=== PATIENT | male | born 1940 | race Two or more races ===

== ENCOUNTER → 2017-11-16 | Outpatient (CLI) | payer OTHER ==
[~2017-11-16] MED LIST: ADVAIR 2501 DISK W/1; ARICEPT10 MG PO; AZULFIDINE500 M1; FOLIC ACID0.4 MG; NEURONTIN300 MG; PROTONIX40 MG; VITAMIN D50000 UNIT; ZOCOR20 MG; [UNRECOGNIZED DRUG - OTHER]
== END | disposition home or self-care (01) ==
LOC: NUCLEAR 14:00
DX: M81.0 Age-related osteoporosis without current pathological fracture (principal)

== ENCOUNTER 2018-03-17 06:21 | Day surgery (SDC) | payer OTHER | END 2018-03-17 10:00 | disposition home or self-care (01) | LOC: AMB-ENDOS 06:21 | DX: K57.30 Diverticulosis of large intestine without perforation or abscess without bleeding (principal); D12.0 Benign neoplasm of cecum; K29.50 Unspecified chronic gastritis without bleeding; B96.81 Helicobacter pylori [H. pylori] as the cause of diseases classified elsewhere ==

== ENCOUNTER 2019-03-08 12:26 | Outpatient (CLI) | payer OTHER | END 2019-03-08 14:19 | disposition home or self-care (01) | LOC: SONOGRAMA 12:26 | DX: N40.1 Benign prostatic hyperplasia with lower urinary tract symptoms (principal) ==

== ENCOUNTER → 2021-08-08 08:00 | Outpatient (CLI) | payer OTHER ==
[~2021-08-08 08:00] MED LIST changes: +LEVOXYL88 MCG; +METFORMIN HCL500 M3; +METHOTREXATE; +PLAVIX75 MG PO; +SERTRA PO; +SIMVAST PO; +TAMSULOSIN HCL0.4 MG; +ZEGERID 40 MG1 EACH; +[UNRECOGNIZED DRUG - OTHER] PO
== END | disposition home or self-care (01) ==
LOC: ADM 07:15 → LAB 08:00 → CIR.AMB 08-12 07:15 → EDSTATUS 08-12 07:15 → CIR.AMB 08-12 11:00
PROVIDERS: ATTEND Surgery
DX: N40.1 Benign prostatic hyperplasia with lower urinary tract symptoms (principal); B96.29 Other Escherichia coli [E. coli] as the cause of diseases classified elsewhere; I10 Essential (primary) hypertension

== ENCOUNTER 2021-09-05 19:19 | Emergency (ER) | payer OTHER ==
[~2021-09-05] VITALS: Ht 157.5 cm; Wt 81.6 kg
[~2021-09-05 19:19] MED LIST changes: -PLAVIX75 MG PO; -SERTRA PO; -SIMVAST PO; -[UNRECOGNIZED DRUG - OTHER] PO
[2021-09-11] MEDS ORDERED: ARICEPT10 MG PO (13:37)
[2021-09-11] MEDS ORDERED: PLAVIX75 MG PO (13:37)
[2021-09-11] MEDS ORDERED: SERTRA PO (13:38)
[2021-09-11] MEDS ORDERED: SIMVAST PO (13:38)
[2021-09-11] MEDS ORDERED: [UNRECOGNIZED DRUG - OTHER] PO (13:39)
== END 2021-09-06 10:11 | disposition home or self-care (01) ==
LOC: ER 19:19
DX: R06.02 Shortness of breath (principal); R07.89 Other chest pain; R50.9 Fever, unspecified; Z03.818 Encounter for observation for suspected exposure to other biological agents ruled out

== ENCOUNTER 2021-09-22 06:34 | Inpatient (IN) | payer OTHER ==
[~2021-09-22 06:34] MED LIST changes: +PLAVIX75 MG PO; +SERTRA PO; +SIMVAST PO; +[UNRECOGNIZED DRUG - OTHER] PO
[2021-09-23] MEDS ORDERED: TAMSULOSIN HCL0.4 MG PO (14:05)
[2021-09-23] MEDS ORDERED: SURFAK240 M1 PO (14:07)
== END 2021-09-23 19:38 | disposition home or self-care (01) | DRG 714 ==
LOC: CIR.AMB 06:34 → O/R 11:18 → SURH 11:36
PROVIDERS: ADMIT Surgery; ATTEND Surgery
PROC: 0T8C0ZZ Division of Bladder Neck, Open Approach (ICD-10-PCS; 2021-09-22)
PROC: 0VT08ZZ Resection of Prostate, Via Natural or Artificial Opening Endoscopic (ICD-10-PCS; principal; 2021-09-22 07:00)
DX: N40.1 Benign prostatic hyperplasia with lower urinary tract symptoms (principal); I12.9 Hypertensive chronic kidney disease with stage 1 through stage 4 chronic kidney disease, or unspecified chronic kidney disease; E11.22 Type 2 diabetes mellitus with diabetic chronic kidney disease; N18.9 Chronic kidney disease, unspecified; G47.39 Other sleep apnea; J44.9 Chronic obstructive pulmonary disease, unspecified; Z79.4 Long term (current) use of insulin

== ENCOUNTER 2023-06-07 13:12 | Outpatient (CLI) | payer OTHER ==
[~2023-06-07 13:12] MED LIST changes: +ARTHRITIS PAIN150 GM TOP; +SURFAK240 M1 PO; +TAMSULOSIN HCL0.4 MG PO; +ZANAFLEX2 MG PO
== END 2023-06-07 13:16 | disposition home or self-care (01) ==
LOC: RAD 13:12
PROVIDERS: ATTEND Physical Medicine & Rehabilitation
DX: M17.12 Unilateral primary osteoarthritis, left knee (principal)

== ENCOUNTER 2023-09-20 15:36 | Emergency (ER) | payer OTHER ==
[~2023-09-20] VITALS: Ht 157.5 cm; Wt 81.6 kg
[2023-09-20] MEDS ORDERED: METHOTREXATE2.5 MG (15:43)
[2023-09-20] MEDS ORDERED: ROSUVASTATIN CA10 MG (15:43)
[2023-09-20] MEDS ORDERED: SERTRALINE HCL100 MG (15:43)
[2023-09-20 17:23] LABS: HEMATOCRIT 33.9 % (39.0-48.0); HEMOGLOBIN 11.7 g/dL (13-16.00); MEAN CELL VOLUME 95.7 fL (80.0-100.00); MEAN CORPUSCULAR HEMOGLOBIN 32.9 pg (27.00-32.0); MEAN CORPUSCULAR HGB CONC 34.3 g/dl (32.0-36.0); RED BLOOD COUNT 3.54 M/uL (4.00-6.00)
[2023-09-20 17:36] LABS: PLATELET COUNT 117 K/uL (150-450)
[2023-09-20 17:48] LABS: INR 1.18; PARTIAL THROMBOPLASTIN TIME 28.9 SECONDS (22.0-34.0); PROTHROMBIN TIME 12.2 SECONDS (9.0-11.5)
[2023-09-20 18:25] LABS: ALBUMIN 2.7 gm/dL (3.4-5.0); BILIRUBIN TOTAL 1.09 mg/dL (0.3-1.2); CALCIUM 9.2 mg/dL (8.5-10.1); CREATININE SERUM 1.39 mg/dL (0.70-1.30); GFR 48.68; GLOBULINA 4.8 G/DL (2.4-3.5); POTASSIUM 4.24 mEq/L (3.5-5.1); TOTAL PROTEIN 7.5 gm/dL (6.4-8.2)
== END 2023-09-20 20:51 | disposition home or self-care (01) ==
LOC: ER 15:36
PROVIDERS: General Practice
DX: J11.1 Influenza due to unidentified influenza virus with other respiratory manifestations (principal); R50.9 Fever, unspecified; Z20.822 Contact with and (suspected) exposure to COVID-19; E11.9 Type 2 diabetes mellitus without complications; Z79.84 Long term (current) use of oral hypoglycemic drugs; M06.8A Other specified rheumatoid arthritis, other specified site; E03.9 Hypothyroidism, unspecified; Z86.73 Personal history of transient ischemic attack (TIA), and cerebral infarction without residual deficits; K57.32 Diverticulitis of large intestine without perforation or abscess without bleeding; K74.69 Other cirrhosis of liver; D73.2 Chronic congestive splenomegaly; N20.0 Calculus of kidney; I86.8 Varicose veins of other specified sites

== ENCOUNTER 2023-09-22 12:52 | Outpatient (CLI) | payer OTHER ==
[~2023-09-22 12:52] MED LIST changes: +METHOTREXATE2.5 MG; +ROSUVASTATIN CA10 MG; +SERTRALINE HCL100 MG
== END 2023-09-22 13:05 | disposition home or self-care (01) ==
LOC: MRI 12:52
PROVIDERS: ATTEND Physical Medicine & Rehabilitation
DX: M17.12 Unilateral primary osteoarthritis, left knee (principal); M25.562 Pain in left knee
CPT/HCPCS: 73721

== ENCOUNTER 2023-11-03 11:36 | Outpatient (CLI) | payer OTHER | END 2023-11-03 11:41 | disposition home or self-care (01) | LOC: RAD 11:36 | PROVIDERS: ATTEND Physical Medicine & Rehabilitation | DX: M54.51 Vertebrogenic low back pain (principal) ==

== ENCOUNTER 2023-11-17 19:36 | Inpatient (IN) | payer OTHER ==
[~2023-11-17] VITALS: Ht 157.5 cm; Wt 73.5 kg
[2023-11-17] MEDS ORDERED: 0.9 % SODIUM CHLORIDE 1,000 ML IV SCH ×2 (20:45→23:30)
[2023-11-17] MEDS ORDERED: CEFTRIAXONE SODIUM 2,000 MG VIAL IV ONE (20:45)
[2023-11-17 21:46] LABS: HEMATOCRIT 28.6 % (39.0-48.0); HEMOGLOBIN 9.7 g/dL (13-16.00); MEAN CELL VOLUME 93.6 fL (80.0-100.00); MEAN CORPUSCULAR HEMOGLOBIN 31.8 pg (27.00-32.0); PLATELET COUNT 193 K/uL (150-450); RED BLOOD COUNT 3.06 M/uL (4.00-6.00); RED CELL DISTRIBUTION WIDTH 16.3 % (11.5-14.5)
[2023-11-17 22:11] LABS: BILIRUBIN TOTAL 1.53 mg/dL (0.3-1.2); CALCIUM 8.3 mg/dL (8.5-10.1); CREATININE SERUM 1.45 mg/dL (0.70-1.30); GFR 46.36; GLOBULINA 4.5 G/DL (2.4-3.5); POTASSIUM 3.33 mEq/L (3.5-5.1); TOTAL PROTEIN 6.5 gm/dL (6.4-8.2)
[2023-11-17 22:49] LABS: URINE APPEARANCE CLEAR; URINE BILIRRUBIN Negative (NEGATIVE); URINE BLOOD Small; URINE COLOR Yellow; URINE GLUCOSE Negative (NEGATIVE); URINE LEUKOCYTE Small; URINE NITRATE Negative; URINE PROTEIN Trace (NEGATIVE)
[2023-11-17 22:50] LABS: URINE RBC 19-25 /HPF
[2023-11-17 22:51] LABS: URINE BACTERIA MODERATE; URINE MUCUS MODERATE; URINE YEAST NEGATIVE /hpf
[2023-11-17] MEDS ORDERED: DONEPEZIL HCL 10 MG TABLET PO SCH (23:29)
[2023-11-17] MEDS ORDERED: ACETAMINOPHEN 500 MG GEL..CAP PO PRN (23:30)
[2023-11-17] MEDS ORDERED: ONDANSETRON HCL 4 MG in 0.9 % SODIUM CHLORIDE 50 ML IV PRN (23:30)
[2023-11-18 01:58] LABS: INR 1.36; PARTIAL THROMBOPLASTIN TIME 34.6 SECONDS (22.0-34.0)
[2023-11-18] MEDS ORDERED: LEVOTHYROXINE SODIUM 88 MCG TABLET PO SCH (06:00)
[2023-11-18] MEDS ORDERED: CEFTRIAXONE SODIUM 2,000 MG in 0.9 % SODIUM CHLORIDE 100 ML IV SCH (09:00)
[2023-11-18] MEDS ORDERED: CLOPIDOGREL BISULFATE 75 MG TABLET PO SCH (09:00)
[2023-11-18] MEDS ORDERED: FAMOTIDINE/PF 20 MG in 0.9 % SODIUM CHLORIDE 8 ML IV PUSH SCH (09:00)
[2023-11-18 16:59] LABS: BILIRUBIN TOTAL 0.95 mg/dL (0.3-1.2); CALCIUM 7.9 mg/dL (8.5-10.1); CREATININE SERUM 1.25 mg/dL (0.70-1.30); GFR 55.03; GLOBULINA 3.9 G/DL (2.4-3.5); MAGNESIUM 1.9 mg/dL (1.8-2.4); PHOSPHOROUS 2.3 mg/dL (2.5-4.9); POTASSIUM 3.51 mEq/L (3.5-5.1); TOTAL PROTEIN 5.9 gm/dL (6.4-8.2); TSH 0.52 uIU/mL (0.358-3.74)
[2023-11-18] MEDS ORDERED: SIMVASTATIN 20 MG TABLET PO SCH (17:00)
[2023-11-19 07:05] LABS: BILIRUBIN TOTAL 0.83 mg/dL (0.3-1.2); CREATININE SERUM 1.14 mg/dL (0.70-1.30); GFR 61.2; POTASSIUM 3.76 mEq/L (3.5-5.1)
[2023-11-20 08:01] LABS: CREATININE SERUM 1.11 mg/dL (0.70-1.30); GFR 63.11; POTASSIUM 3.77 mEq/L (3.5-5.1)
[2023-11-20] MEDS ORDERED: SODIUM CHLORIDE 0.45 % 1,000 ML IV SCH (11:15)
[2023-11-20] MEDS ORDERED: DEXTROSE 5 %-0.45 % SOD CHLORD 1,000 ML IV SCH (15:00)
[2023-11-21 09:14] LABS: ALBUMIN 2.2 gm/dL (3.4-5.0); CALCIUM 8.3 mg/dL (8.5-10.1); CREATININE SERUM 1.11 mg/dL (0.70-1.30); GFR 63.11; POTASSIUM 4.51 mEq/L (3.5-5.1)
[2023-11-22 07:09] LABS: CALCIUM 8.2 mg/dL (8.5-10.1); CREATININE SERUM 1.08 mg/dL (0.70-1.30); GFR 65.14; POTASSIUM 3.76 mEq/L (3.5-5.1)
[2023-11-23] MEDS ORDERED: FAMOTIDINE/PF 20 MG/2 ML VIAL ONE (23:59)
[2023-11-24 06:19] LABS: HEMATOCRIT 27.5 % (39.0-48.0); HEMOGLOBIN 9.6 g/dL (13-16.00); MEAN CELL VOLUME 94.3 fL (80.0-100.00); MEAN CORPUSCULAR HEMOGLOBIN 32.9 pg (27.00-32.0); MEAN CORPUSCULAR HGB CONC 34.9 g/dl (32.0-36.0); PLATELET COUNT 195 K/uL (150-450); RED BLOOD COUNT 2.91 M/uL (4.00-6.00); RED CELL DISTRIBUTION WIDTH 16.8 % (11.5-14.5)
[2023-11-24 07:04] LABS: ALBUMIN 2.1 gm/dL (3.4-5.0); BILIRUBIN TOTAL 0.74 mg/dL (0.3-1.2); CALCIUM 8.2 mg/dL (8.5-10.1); CREATININE SERUM 0.91 mg/dL (0.70-1.30); GFR 79.37; GLOBULINA 3.8 G/DL (2.4-3.5); POTASSIUM 3.63 mEq/L (3.5-5.1); TOTAL PROTEIN 5.9 gm/dL (6.4-8.2)
== END 2023-11-24 13:15 | disposition home or self-care (01) | DRG 872 ==
LOC: ER 19:36 → MEDJ 23:31
PROVIDERS: General Practice; Internal Medicine; Internal Medicine Nephrology; Student in an Organized Health Care Education/Training Program; ADMIT Internal Medicine; ATTEND Internal Medicine
PROC: BW28ZZZ Computerized Tomography (CT Scan) of Head (ICD-10-PCS; principal; 2023-11-17)
PROC: B345ZZZ Ultrasonography of Bilateral Common Carotid Arteries (ICD-10-PCS; 2023-11-17)
PROC: B24BZZZ Ultrasonography of Heart with Aorta (ICD-10-PCS; 2023-11-17)
PROC: BW40ZZZ Ultrasonography of Abdomen (ICD-10-PCS; 2023-11-22)
DX: A41.9 Sepsis, unspecified organism (principal); N39.0 Urinary tract infection, site not specified; N17.9 Acute kidney failure, unspecified; E87.0 Hyperosmolality and hypernatremia; E86.0 Dehydration; E11.9 Type 2 diabetes mellitus without complications; Z79.4 Long term (current) use of insulin; E78.5 Hyperlipidemia, unspecified; N40.1 Benign prostatic hyperplasia with lower urinary tract symptoms

== ENCOUNTER 2024-05-08 10:39 | Outpatient (CLI) | payer OTHER ==
[~2024-05-08 10:39] MED LIST changes: +ZOLOFT25 MG
== END 2024-05-09 16:16 | disposition home or self-care (01) ==
LOC: MRI 10:39
PROVIDERS: ATTEND Internal Medicine Cardiovascular Disease
DX: M46.47 Discitis, unspecified, lumbosacral region (principal)
CPT/HCPCS: 72148

== ENCOUNTER 2024-08-29 14:31 | Inpatient (IN) | payer OTHER ==
[~2024-08-29] VITALS: Ht 167.6 cm; Wt 93.0 kg
[2024-08-29] MEDS ORDERED: LEVALBUTEROL HCL 1.25 MG/3 ML SOLUTION IH ONE (14:47)
[2024-08-29] MEDS ORDERED: BUDESONIDE 0.5 MG/2 ML AMPUL.NEB IH STA (15:20)
[2024-08-29] MEDS ORDERED: METHYLPREDNISOLONE SOD SUCC 125 MG VIAL IV STA (15:21)
[2024-08-29] MEDS ORDERED: MAGNESIUM SULFATE IN WATER 4 GM/100 ML PIGGYBACK IV STA (15:22)
[2024-08-29] MEDS ORDERED: HYDROCODONE/CHLORPHEN P-STIREX 5 ML ML PO STA (15:23)
[2024-08-29] MEDS ORDERED: 0.9 % SODIUM CHLORIDE 1,000 ML IV STA (15:25)
[2024-08-29] MEDS ORDERED: LEVALBUTEROL HCL 1.25 MG/3 ML SOLUTION IH SCH ×2 (15:30→17:22)
[2024-08-29 15:47] LABS: HEMATOCRIT 33.3 % (39.0-48.0); HEMOGLOBIN 11.1 g/dL (13-16.00); MEAN CELL VOLUME 95.9 fL (80.0-100.00); MEAN CORPUSCULAR HEMOGLOBIN 31.8 pg (27.00-32.0); MEAN CORPUSCULAR HGB CONC 33.2 g/dl (32.0-36.0); PLATELET COUNT 131 K/uL (150-450); RED BLOOD COUNT 3.47 M/uL (4.00-6.00); RED CELL DISTRIBUTION WIDTH 14.7 % (11.5-14.5)
[2024-08-29] MEDS ORDERED: METHYLPREDNISOLONE SOD SUCC 125 MG VIAL ONE (15:54)
[2024-08-29 15:58] LABS: ALBUMIN 2.5 gm/dL (3.4-5.0); BILIRUBIN TOTAL 1.6 mg/dL (0.3-1.2); CALCIUM 8.6 mg/dL (8.5-10.1); CREATININE SERUM 1.79 mg/dL (0.70-1.30); GFR 36.27; GLOBULINA 4.6 G/DL (2.4-3.5); POTASSIUM 4.31 mEq/L (3.5-5.1); TOTAL PROTEIN 7.1 gm/dL (6.4-8.2)
[2024-08-29 16:05] LABS: ABG PH 7.349 (7.35-7.45); ABG PO2 139.1 mmHg (80-100); BASE EXCESS -2.6 mmol/l; SaO2 98.9 %; Tco2 24.3 mmol/l; allen test SATISFACTORY; o2 35 %; puncture site RADIAL LEFT
[2024-08-29 16:06] LABS: ABG pCO2 42.6 mmHg (35-45)
[2024-08-29 17:00] LABS: INR 1.24; PARTIAL THROMBOPLASTIN TIME 25.2 SECONDS (22.0-34.0); PROTHROMBIN TIME 13.3 SECONDS (9.0-11.5)
[2024-08-29] MEDS ORDERED: CEFTRIAXONE SODIUM 2,000 MG in 0.9 % SODIUM CHLORIDE 100 ML IV SCH (17:24)
[2024-08-29] MEDS ORDERED: AZITHROMYCIN 500 MG in 0.9 % SODIUM CHLORIDE 250 ML IV SCH (17:24)
[2024-08-29] MEDS ORDERED: INSULIN LISPRO 1,000 UNIT/10 ML UNITS SUBCUTANEO PRN (17:30)
[2024-08-29] MEDS ORDERED: DEXTROSE 50 % IN WATER 0.5 G/ML DISP.SYRIN IV PRN (17:30)
[2024-08-29] MEDS ORDERED: ACETAMINOPHEN 500 MG GEL..CAP PO PRN (17:30)
[2024-08-29] MEDS ORDERED: 0.9 % SODIUM CHLORIDE 1,000 ML IV SCH (17:30)
[2024-08-29] MEDS ORDERED: ONDANSETRON HCL 4 MG in 0.9 % SODIUM CHLORIDE 50 ML IV PRN (18:00)
[2024-08-29] MEDS ORDERED: IPRATROPIUM BROMIDE 0.5 MG/2.5 ML AMPUL.NEB IH SCH (18:00)
[2024-08-29] MEDS ORDERED: CEFTRIAXONE SODIUM 2,000 MG VIAL ONE (18:25)
[2024-08-29] MEDS ORDERED: AZITHROMYCIN 500 MG VIAL IV ONE (18:25)
[2024-08-29 19:48] LABS: PH,URINE 5.5 (5.0-8.0); URINE APPEARANCE Cloudy; URINE BILIRRUBIN Small (NEGATIVE); URINE BLOOD Large; URINE COLOR Dark Yellow; URINE GLUCOSE Negative (NEGATIVE); URINE KETONE Trace (NEGATIVE); URINE LEUKOCYTE Moderate; URINE NITRATE Negative; URINE PROTEIN 30 (NEGATIVE)
[2024-08-29 19:52] LABS: URINE CAST 4.86 uL (0.0-1.40); URINE EPITHELIAL CELLS 35.1 uL (0.0-38.8); URINE RBC 186.3 uL (0.0-20.8)
[2024-08-29 20:03] LABS: URINE BACTERIA > 9821.5 uL (0.0-1933); URINE WBC 331.1 uL (0.0-23.2)
[2024-08-29 21:26] VITALS: BP 126/63; O2SAT 100
[2024-08-29 23:06] VITALS: BP 102/58; O2SAT 99
[2024-08-30] MEDS ORDERED: METHYLPREDNISOLONE SOD SUCC 40 MG VIAL IV SCH (01:00)
[2024-08-30 04:00] VITALS: BP 119/59; O2SAT 99
[2024-08-30] MEDS ORDERED: LEVOTHYROXINE SODIUM 88 MCG TABLET PO SCH (06:00)
[2024-08-30 07:00] VITALS: BP 124/66; O2SAT 98
[2024-08-30] MEDS ORDERED: AZITHROMYCIN 500 MG VIAL IV SCH (09:00)
[2024-08-30] MEDS ORDERED: PANTOPRAZOLE SODIUM 40 MG/VIAL VIAL IV SCH (09:00)
[2024-08-30] MEDS ORDERED: ENOXAPARIN SODIUM 40 MG/0.4 ML SYRINGE SUBCUTANEO SCH (09:00)
[2024-08-30 09:42] LABS: ABG PH 7.371 (7.35-7.45); ABG PO2 90.6 mmHg (80-100); ABG pCO2 38.8 mmHg (35-45); BASE EXCESS -2.9 mmol/l; SaO2 96.6 %; Tco2 23.2 mmol/l
[2024-08-30 09:43] LABS: allen test SATISFACTORY; o2 30 %; puncture site RADIAL LEFT
[2024-08-30] MEDS ORDERED: AZITHROMYCIN 500 MG VIAL IV ONE (11:28)
[2024-08-30 11:59] VITALS: BP 125/63; O2SAT 99
[2024-08-30 12:51] LABS: HEMATOCRIT 33.4 % (39.0-48.0); HEMOGLOBIN 11.2 g/dL (13-16.00); MEAN CORPUSCULAR HEMOGLOBIN 32.3 pg (27.00-32.0); MEAN CORPUSCULAR HGB CONC 33.7 g/dl (32.0-36.0); RED BLOOD COUNT 3.48 M/uL (4.00-6.00); RED CELL DISTRIBUTION WIDTH 14.5 % (11.5-14.5)
[2024-08-30 12:56] LABS: PLATELET COUNT 93 K/uL (150-450)
[2024-08-30 13:50] LABS: CALCIUM 8.1 mg/dL (8.5-10.1); CREATININE SERUM 1.52 mg/dL (0.70-1.30); GFR 43.8; POTASSIUM 4.56 mEq/L (3.5-5.1)
[2024-08-30 15:10] VITALS: BP 124/66; O2SAT 99
[2024-08-30 20:00] VITALS: BP 101/55; O2SAT 100
[2024-08-30 23:20] VITALS: BP 122/60; O2SAT 100
[2024-08-31 04:00] VITALS: BP 105/52
[2024-08-31 06:28] LABS: HEMATOCRIT 30.4 % (39.0-48.0); HEMOGLOBIN 10.4 g/dL (13-16.00); MEAN CELL VOLUME 94.6 fL (80.0-100.00); MEAN CORPUSCULAR HEMOGLOBIN 32.3 pg (27.00-32.0); MEAN CORPUSCULAR HGB CONC 34.2 g/dl (32.0-36.0); RED BLOOD COUNT 3.21 M/uL (4.00-6.00); RED CELL DISTRIBUTION WIDTH 14.9 % (11.5-14.5)
[2024-08-31 06:30] LABS: PLATELET COUNT 104 K/uL (150-450)
[2024-08-31 07:00] VITALS: BP 66/56
[2024-08-31 07:07] LABS: CALCIUM 7.8 mg/dL (8.5-10.1); CREATININE SERUM 1.34 mg/dL (0.70-1.30); GFR 50.66; POTASSIUM 4.1 mEq/L (3.5-5.1)
[2024-08-31] MEDS ORDERED: AZITHROMYCIN 500 MG VIAL IV ONE (07:47)
[2024-08-31] MEDS ORDERED: SERTRALINE HCL 25 MG TABLET PO SCH (09:00)
[2024-08-31] MEDS ORDERED: ATORVASTATIN CALCIUM 20 MG TABLET PO SCH (09:00)
[2024-08-31] MEDS ORDERED: CLOPIDOGREL BISULFATE 75 MG TABLET PO SCH (09:00)
[2024-08-31 12:05] VITALS: BP 112/63; O2SAT 96
[2024-08-31 14:16] LABS: PH,URINE 5.5 (5.0-8.0); URINE APPEARANCE Clear; URINE BILIRRUBIN Negative (NEGATIVE); URINE BLOOD Large; URINE COLOR Yellow; URINE GLUCOSE Negative (NEGATIVE); URINE KETONE Negative (NEGATIVE); URINE LEUKOCYTE Small; URINE NITRATE Negative; URINE PROTEIN 30 (NEGATIVE); URINE UROBILINOGEN 0.2 E.U./dl
[2024-08-31 14:19] LABS: URINE BACTERIA 40.3 uL (0.0-1933); URINE EPITHELIAL CELLS 4.7 uL (0.0-38.8); URINE RBC 1618.2 uL (0.0-20.8); URINE WBC 36.8 uL (0.0-23.2)
[2024-08-31 14:25] VITALS: BP 106/45
[2024-08-31] MEDS ORDERED: LACTOBACILLUS ACIDOPHILUS 1 CAP CAP PO SCH (17:00)
[2024-08-31] MEDS ORDERED: DONEPEZIL HCL 10 MG TABLET PO SCH (17:00)
[2024-08-31 17:25] VITALS: BP 110/61; O2SAT 95
[2024-09-01 00:51] VITALS: BP 129/67; O2SAT 99
[2024-09-01 06:15] LABS: HEMATOCRIT 30.5 % (39.0-48.0); HEMOGLOBIN 10.5 g/dL (13-16.00); MEAN CELL VOLUME 94.8 fL (80.0-100.00); MEAN CORPUSCULAR HEMOGLOBIN 32.7 pg (27.00-32.0); MEAN CORPUSCULAR HGB CONC 34.5 g/dl (32.0-36.0); RED BLOOD COUNT 3.21 M/uL (4.00-6.00); RED CELL DISTRIBUTION WIDTH 15.3 % (11.5-14.5)
[2024-09-01 06:27] LABS: PLATELET COUNT 111 K/uL (150-450)
[2024-09-01 06:46] LABS: CALCIUM 8.2 mg/dL (8.5-10.1); CREATININE SERUM 1.27 mg/dL (0.70-1.30); GFR 53.9; POTASSIUM 4.87 mEq/L (3.5-5.1)
[2024-09-01] MEDS ORDERED: AZITHROMYCIN 500 MG VIAL IV ONE (08:46)
[2024-09-01] MEDS ORDERED: PANTOPRAZOLE SODIUM 40 MG/VIAL VIAL IV SCH (09:00)
[2024-09-01 09:09] VITALS: BP 113/62; O2SAT 100
[2024-09-01 12:57] LABS: ABG PH 7.402 (7.35-7.45); ABG pCO2 36.2 mmHg (35-45)
[2024-09-01 12:58] LABS: ABG PO2 87.9 mmHg (80-100); BASE EXCESS -2.2 mmol/l; SaO2 96.6 %; Tco2 23.1 mmol/l; allen test SATISFACTORY; o2 21 %; puncture site RADIAL RIGHT
[2024-09-01 17:27] VITALS: BP 140/67; O2SAT 97
[2024-09-02] MEDS ORDERED: METHYLPREDNISOLONE SOD SUCC 40 MG VIAL IV SCH (01:00)
[2024-09-02 02:08] VITALS: BP 145/71; O2SAT 97
[2024-09-02] MEDS ORDERED: AZITHROMYCIN 500 MG VIAL IV ONE (08:29)
[2024-09-02] MEDS ORDERED: PANTOPRAZOLE SODIUM 40 MG TABLET.DR PO SCH (09:00)
[2024-09-02 10:33] VITALS: BP 135/69; O2SAT 96
== END 2024-09-02 10:32 | disposition home or self-care (01) | DRG 864 ==
LOC: ER 14:31 → ICU-2 19:07 → ICU 19:07 → MEDJ 08-31 14:25
PROVIDERS: General Practice; Internal Medicine; Internal Medicine Infectious Disease; Internal Medicine Pulmonary Disease; ADMIT Student in an Organized Health Care Education/Training Program; ATTEND Student in an Organized Health Care Education/Training Program
PROC: BW24ZZZ Computerized Tomography (CT Scan) of Chest and Abdomen (ICD-10-PCS; principal; 2024-08-29)
DX: R65.10 Systemic inflammatory response syndrome (SIRS) of non-infectious origin without acute organ dysfunction (principal); J18.9 Pneumonia, unspecified organism; J96.90 Respiratory failure, unspecified, unspecified whether with hypoxia or hypercapnia; J44.1 Chronic obstructive pulmonary disease with (acute) exacerbation; L03.115 Cellulitis of right lower limb; N17.9 Acute kidney failure, unspecified; N39.0 Urinary tract infection, site not specified; F03.90 Unspecified dementia, unspecified severity, without behavioral disturbance, psychotic disturbance, mood disturbance, and anxiety; E11.9 Type 2 diabetes mellitus without complications; Z79.4 Long term (current) use of insulin; B96.0 Mycoplasma pneumoniae [M. pneumoniae] as the cause of diseases classified elsewhere; G47.33 Obstructive sleep apnea (adult) (pediatric)

== ENCOUNTER 2024-11-16 11:47 | Inpatient (IN) | payer OTHER ==
[~2024-11-16] VITALS: Ht 157.5 cm; Wt 81.6 kg
[2024-11-16] MEDS ORDERED: METHYLPREDNISOLONE SOD SUCC 40 MG VIAL IV ONE (12:00)
[2024-11-16] MEDS ORDERED: IPRATROPIUM BROMIDE 0.5 MG/2.5 ML AMPUL.NEB IH ONE ×3 (12:00→20:42)
[2024-11-16] MEDS ORDERED: LEVALBUTEROL HCL 0.63 MG/3 ML SOLUTION IH ONE (12:00)
[2024-11-16] MEDS ORDERED: 0.9 % SODIUM CHLORIDE 1,000 ML IV SCH ×2 (12:00→17:30)
[2024-11-16] MEDS ORDERED: LEVALBUTEROL HCL 1.25 MG/3 ML SOLUTION IH ONE ×2 (12:13→20:41)
[2024-11-16 12:17] LABS: ABG PH 7.416 (7.35-7.45); ABG PO2 60.1 mmHg (80-100); ABG pCO2 35.7 mmHg (35-45); BASE EXCESS -1.5 mmol/l; BICARBONATE 22.4 mmol/l (23-25); Tco2 23.5 mmol/l
[2024-11-16 12:29] LABS: HEMATOCRIT 29.2 % (39.0-48.0); HEMOGLOBIN 10.2 g/dL (13-16.00); MEAN CELL VOLUME 95.3 fL (80.0-100.00); MEAN CORPUSCULAR HEMOGLOBIN 33.2 pg (27.00-32.0); MEAN CORPUSCULAR HGB CONC 34.9 g/dl (32.0-36.0); RED BLOOD COUNT 3.06 M/uL (4.00-6.00); RED CELL DISTRIBUTION WIDTH 16.1 % (11.5-14.5)
[2024-11-16 12:32] LABS: PLATELET COUNT 113 K/uL (150-450)
[2024-11-16 12:37] LABS: allen test SATISFACTORY; puncture site RADIAL RIGHT
[2024-11-16 12:38] LABS: o2 21 %
[2024-11-16] MEDS ORDERED: METHYLPREDNISOLONE SOD SUCC 40 MG VIAL ONE (12:47)
[2024-11-16 13:01] LABS: URINE APPEARANCE Cloudy; URINE BILIRRUBIN Small (NEGATIVE); URINE BLOOD Small; URINE COLOR Dark Yellow; URINE GLUCOSE Negative (NEGATIVE); URINE KETONE Trace (NEGATIVE); URINE LEUKOCYTE Large; URINE NITRATE Negative; URINE PROTEIN Trace (NEGATIVE); URINE UROBILINOGEN 0.2 E.U./dl
[2024-11-16 13:05] LABS: URINE CAST 2.35 uL (0.0-1.40); URINE EPITHELIAL CELLS 7.4 uL (0.0-38.8); URINE WBC 560.5 uL (0.0-23.2)
[2024-11-16 13:18] LABS: ALBUMIN 2.6 gm/dL (3.4-5.0); BILIRUBIN TOTAL 2.27 mg/dL (0.3-1.2); CALCIUM 8.4 mg/dL (8.5-10.1); CREATININE SERUM 2.15 mg/dL (0.70-1.30); GFR 29.36; GLOBULINA 3.9 G/DL (2.4-3.5); TOTAL PROTEIN 6.5 gm/dL (6.4-8.2)
[2024-11-16 13:31] LABS: URINE BACTERIA > 9821.5 uL (0.0-1933)
[2024-11-16 13:46] LABS: URINE CRYSTALS FEW /HPF
[2024-11-16] MEDS ORDERED: CEFTRIAXONE SODIUM 1,000 MG VIAL ONE (13:55)
[2024-11-16] MEDS ORDERED: CEFTRIAXONE SODIUM 1,000 MG VIAL IV ONE (14:00)
[2024-11-16] MEDS ORDERED: LEVALBUTEROL HCL 1.25 MG/3 ML SOLUTION IH SCH (17:33)
[2024-11-16] MEDS ORDERED: AZITHROMYCIN 500 MG in DEXTROSE 5 % IN WATER 250 ML IV SCH (17:39)
[2024-11-16] MEDS ORDERED: CEFTRIAXONE SODIUM 2,000 MG in 0.9 % SODIUM CHLORIDE 100 ML IV SCH (17:39)
[2024-11-16] MEDS ORDERED: OSELTAMIVIR PHOSPHATE 75 MG CAPSULE PO SCH (17:42)
[2024-11-16] MEDS ORDERED: LACTULOSE 10 G/15 ML ML PO SCH (17:44)
[2024-11-16] MEDS ORDERED: ACETAMINOPHEN 500 MG GEL..CAP PO PRN (17:45)
[2024-11-16] MEDS ORDERED: ONDANSETRON HCL 4 MG in 0.9 % SODIUM CHLORIDE 50 ML IV PRN (17:45)
[2024-11-16] MEDS ORDERED: PANTOPRAZOLE SODIUM 40 MG/VIAL VIAL IV SCH (17:49)
[2024-11-16] MEDS ORDERED: 0.9 % SODIUM CHLORIDE 500 ML IV ONE (18:00)
[2024-11-16] MEDS ORDERED: IPRATROPIUM BROMIDE 0.5 MG/2.5 ML AMPUL.NEB IH SCH (18:00)
[2024-11-16 19:31] LABS: INR 1.26; PARTIAL THROMBOPLASTIN TIME 30.9 SECONDS (22.0-34.0); PROTHROMBIN TIME 13.5 SECONDS (9.0-11.5)
[2024-11-16] MEDS ORDERED: CEFTRIAXONE SODIUM 2,000 MG VIAL ONE (20:04)
[2024-11-16] MEDS ORDERED: AZITHROMYCIN 500 MG VIAL IV ONE (20:05)
[2024-11-16] MEDS ORDERED: OSELTAMIVIR PHOSPHATE 30MG CAP PO SCH (21:00)
[2024-11-16 23:43] VITALS: BP 101/49; O2SAT 99
[2024-11-17] VITALS (8 sets, daily range): BP systolic 83–117; BP diastolic 46–63; O2SAT 94–100
[2024-11-17] MEDS ORDERED: IPRATROPIUM BROMIDE 0.5 MG/2.5 ML AMPUL.NEB IH ONE (00:48)
[2024-11-17] MEDS ORDERED: LEVALBUTEROL HCL 0.63 MG/3 ML SOLUTION IH ONE (00:48)
[2024-11-17] MEDS ORDERED: LEVOTHYROXINE SODIUM 100 MCG TABLET PO SCH (06:00)
[2024-11-17] MEDS ORDERED: MEMANTINE HCL 10 MG TABLET PO SCH (09:00)
[2024-11-17] MEDS ORDERED: FOLIC ACID 1 MG TABLET PO SCH (09:00)
[2024-11-17] MEDS ORDERED: LACTULOSE 20 G/30 ML BLIST.PACK PO SCH (09:00)
[2024-11-17] MEDS ORDERED: CHLORHEXIDINE GLUCONATE 120 ML BOTTLE TOP ONE (11:14)
[2024-11-17] MEDS ORDERED: METHYLPREDNISOLONE SOD SUCC 40 MG VIAL IV SCH (13:00)
[2024-11-17] MEDS ORDERED: AZITHROMYCIN 500 MG VIAL IV STA (13:29)
[2024-11-17] MEDS ORDERED: AZITHROMYCIN 500 MG VIAL IV ONE (14:18)
[2024-11-17] MEDS ORDERED: DONEPEZIL HCL 10 MG TABLET PO SCH (17:00)
[2024-11-18] VITALS: BP 138/55; O2SAT 95
[2024-11-18 08:04] VITALS: BP 150/72; O2SAT 97
[2024-11-18] MEDS ORDERED: AZITHROMYCIN 500 MG VIAL IV ONE (08:31)
[2024-11-18] MEDS ORDERED: AZITHROMYCIN 500 MG VIAL IV SCH (09:00)
[2024-11-18 16:35] VITALS: BP 128/65; O2SAT 96
[2024-11-18] MEDS ORDERED: VANCOMYCIN HCL 1,000 MG VIAL IV SCH (19:20)
[2024-11-19 00:25] VITALS: BP 116/50; O2SAT 96
[2024-11-19 08:13] VITALS: BP 150/77; O2SAT 97
[2024-11-19 08:18] LABS: ALBUMIN 2.6 gm/dL (3.4-5.0); BILIRUBIN TOTAL 0.5 mg/dL (0.3-1.2); CALCIUM 8.4 mg/dL (8.5-10.1); CREATININE SERUM 1.42 mg/dL (0.70-1.30); GFR 47.38; GLOBULINA 4.1 G/DL (2.4-3.5); POTASSIUM 4.22 mEq/L (3.5-5.1); TOTAL PROTEIN 6.7 gm/dL (6.4-8.2)
[2024-11-19] MEDS ORDERED: AZITHROMYCIN 500 MG VIAL IV ONE (08:19)
[2024-11-19 08:28] LABS: HEMATOCRIT 29.6 % (39.0-48.0); HEMOGLOBIN 10.3 g/dL (13-16.00); MEAN CELL VOLUME 95.7 fL (80.0-100.00); MEAN CORPUSCULAR HEMOGLOBIN 33.3 pg (27.00-32.0); MEAN CORPUSCULAR HGB CONC 34.8 g/dl (32.0-36.0); PLATELET COUNT 149 K/uL (150-450); RED BLOOD COUNT 3.09 M/uL (4.00-6.00); RED CELL DISTRIBUTION WIDTH 16.6 % (11.5-14.5)
[2024-11-19] MEDS ORDERED: VANCOMYCIN HCL 1,000 MG VIAL ONE (14:34)
[2024-11-19 16:44] VITALS: BP 124/57; O2SAT 98
[2024-11-20 00:40] VITALS: BP 139/68; O2SAT 95
[2024-11-20 08:00] VITALS: BP 131/68
[2024-11-20] MEDS ORDERED: AZITHROMYCIN 500 MG VIAL IV ONE (08:18)
[2024-11-20] MEDS ORDERED: VANCOMYCIN HCL 1,000 MG VIAL ONE (14:18)
[2024-11-20 15:04] LABS: CALCIUM 8.7 mg/dL (8.5-10.1); CREATININE SERUM 1.3 mg/dL (0.70-1.30); GFR 52.47
[2024-11-20 15:58] LABS: POTASSIUM 3.59 mEq/L (3.5-5.1)
[2024-11-20 16:27] VITALS: BP 121/57; O2SAT 95
[2024-11-21 00:37] VITALS: BP 110/48; O2SAT 96
[2024-11-21] MEDS ORDERED: AZITHROMYCIN 500 MG VIAL IV ONE (06:44)
[2024-11-21 09:52] VITALS: BP 134/72; O2SAT 19
[2024-11-21 18:55] VITALS: BP 132/70; O2SAT 100
[2024-11-21] MEDS ORDERED: METHYLPREDNISOLONE SOD SUCC 40 MG VIAL IV SCH (21:00)
[2024-11-21 22:49] LABS: ABG pCO2 37.4 mmHg (35-45); BASE EXCESS -1.7 mmol/l; BICARBONATE 22.7 mmol/l (23-25); SaO2 95.2 %; Tco2 23.8 mmol/l; o2 21 %
[2024-11-21 22:50] LABS: ABG PO2 77.4 mmHg (80-100); allen test SATISFACTORY; puncture site RADIAL RIGHT
[2024-11-22 00:55] VITALS: BP 130/66; O2SAT 97
[2024-11-22] MEDS ORDERED: AZITHROMYCIN 500 MG VIAL IV ONE (06:30)
[2024-11-22 08:00] VITALS: BP 152/72; O2SAT 96
[2024-11-22 08:30] LABS: HEMATOCRIT 30.9 % (39.0-48.0); HEMOGLOBIN 10.6 g/dL (13-16.00); MEAN CELL VOLUME 95.6 fL (80.0-100.00); MEAN CORPUSCULAR HEMOGLOBIN 32.9 pg (27.00-32.0); MEAN CORPUSCULAR HGB CONC 34.4 g/dl (32.0-36.0); PLATELET COUNT 218 K/uL (150-450); RED BLOOD COUNT 3.23 M/uL (4.00-6.00); RED CELL DISTRIBUTION WIDTH 16.6 % (11.5-14.5)
[2024-11-22] MEDS ORDERED: PANTOPRAZOLE SODIUM 40 MG TABLET.DR PO SCH (09:00)
[2024-11-22] MEDS ORDERED: VANCOMYCIN HCL 1,000 MG VIAL IV SCH (09:02)
[2024-11-22] MEDS ORDERED: VANCOMYCIN HCL 1,000 MG VIAL ONE (09:49)
[2024-11-22 16:00] VITALS: BP 138/63; O2SAT 95
[2024-11-22 23:46] VITALS: BP 121/69; O2SAT 98
[2024-11-23] MEDS ORDERED: AZITHROMYCIN 500 MG VIAL IV ONE (07:00)
[2024-11-23] MEDS ORDERED: VANCOMYCIN HCL 1,000 MG VIAL ONE (07:01)
[2024-11-23 08:15] VITALS: BP 132/62; O2SAT 95
[2024-11-23] MEDS ORDERED: METHYLPREDNISOLONE SOD SUCC 40 MG VIAL IV SCH (09:00)
[2024-11-23 09:28] LABS: CALCIUM 8.4 mg/dL (8.5-10.1); CREATININE SERUM 1.28 mg/dL (0.70-1.30); GFR 53.41; POTASSIUM 4.06 mEq/L (3.5-5.1)
[2024-11-23] MEDS ORDERED: BUDESONIDE 0.5 MG/2 ML AMPUL.NEB IH SCH (15:45)
[2024-11-23 16:00] VITALS: BP 136/73; O2SAT 95
[2024-11-24 00:19] VITALS: BP 135/84; O2SAT 99
[2024-11-24] MEDS ORDERED: VANCOMYCIN HCL 1,000 MG VIAL ONE (06:26)
[2024-11-24 08:36] VITALS: BP 141/73; O2SAT 96
[2024-11-24 16:00] VITALS: BP 132/65; O2SAT 96
[2024-11-24] MEDS ORDERED: hydrALAZINE HCL 20 MG VIAL IV PRN (17:45)
[2024-11-24] MEDS ORDERED: NIFEDIPINE 30 MG TAB.SA.OSM PO STA (18:12)
[2024-11-25 00:30] VITALS: BP 110/56; O2SAT 96
[2024-11-25] MEDS ORDERED: VANCOMYCIN HCL 1,000 MG VIAL ONE (06:33)
[2024-11-25 08:00] VITALS: BP 119/69; O2SAT 96
[2024-11-25] MEDS ORDERED: NIFEDIPINE 30 MG TAB.SA.OSM PO SCH (09:00)
[2024-11-25 16:18] VITALS: BP 105/55; O2SAT 95
[2024-11-26 00:15] VITALS: BP 123/64; O2SAT 95
[2024-11-26 08:59] VITALS: BP 124/57; O2SAT 95
[2024-11-26 16:00] VITALS: BP 115/62; O2SAT 95
[2024-11-27 00:36] VITALS: BP 131/62; O2SAT 95
[2024-11-27 08:00] VITALS: BP 125/66; O2SAT 95
[2024-11-27 17:27] VITALS: BP 120/59; O2SAT 94
== END 2024-11-27 18:34 | disposition home or self-care (01) | DRG 194 ==
LOC: ER 11:47 → ICU-2 18:35 → ICU 18:35 → SURH 11-17 22:04
PROVIDERS: Emergency Medicine; General Practice; Internal Medicine; Internal Medicine Nephrology; ADMIT Student in an Organized Health Care Education/Training Program; ATTEND Student in an Organized Health Care Education/Training Program
PROC: BB24ZZZ Computerized Tomography (CT Scan) of Bilateral Lungs (ICD-10-PCS; 2024-11-16)
PROC: 3E0F7GC Introduction of Other Therapeutic Substance into Respiratory Tract, Via Natural or Artificial Opening (ICD-10-PCS; 2024-11-16)
PROC: 8E0ZXY6 Isolation (ICD-10-PCS; principal; 2024-11-17)
PROC: 02HV33Z Insertion of Infusion Device into Superior Vena Cava, Percutaneous Approach (ICD-10-PCS; 2024-11-25)
PROC: 3E04329 Introduction of Other Anti-infective into Central Vein, Percutaneous Approach (ICD-10-PCS; 2024-11-25)
DX: J10.08 Influenza due to other identified influenza virus with other specified pneumonia (principal); N17.9 Acute kidney failure, unspecified; N39.0 Urinary tract infection, site not specified; J44.1 Chronic obstructive pulmonary disease with (acute) exacerbation; K76.82 Hepatic encephalopathy; R22.32 Localized swelling, mass and lump, left upper limb; B95.7 Other staphylococcus as the cause of diseases classified elsewhere; K74.60 Unspecified cirrhosis of liver; E11.9 Type 2 diabetes mellitus without complications; G47.33 Obstructive sleep apnea (adult) (pediatric); G30.9 Alzheimer's disease, unspecified; M06.9 Rheumatoid arthritis, unspecified; Z87.891 Personal history of nicotine dependence; Z74.01 Bed confinement status; Z79.84 Long term (current) use of oral hypoglycemic drugs; B96.20 Unspecified Escherichia coli [E. coli] as the cause of diseases classified elsewhere

== ENCOUNTER 2024-12-02 14:31 | Inpatient (IN) | payer OTHER ==
[~2024-12-02] VITALS: Ht 162.6 cm; Wt 189.6 kg
--- NOTE | 2024-12-02 14:56 | NUR ---
PACIENTE ALERTA Y ORIENTADO X3 TRAIDO EN AMBULANCIA JUNTO A PARAMEDICOS. PACIENTE REFIERE VENIR POR HIPOTENSION, NO REFIERE NINGUN OTRO SINTOMA AL MOMENTO. SE TINY S/V Y SE UBICA.
[2024-12-02 17:15] LABS: HEMATOCRIT 28.9 % (39.0-48.0); HEMOGLOBIN 9.9 g/dL (13-16.00); MEAN CELL VOLUME 95.8 fL (80.0-100.00); MEAN CORPUSCULAR HEMOGLOBIN 32.7 pg (27.00-32.0); MEAN CORPUSCULAR HGB CONC 34.1 g/dl (32.0-36.0); RED BLOOD COUNT 3.02 M/uL (4.00-6.00); RED CELL DISTRIBUTION WIDTH 16.5 % (11.5-14.5)
--- NOTE | 2024-12-02 17:15 | NUR ---
SE EDUCA A FAMILIAR SOBRE [place] MEDICO, SE TINY MUESTRAS DE LABORATORIO UTILIZANDO MEDIDAS ASEPTICAS. PTE CON PICC LINE EN BRAZO RT.
[2024-12-02 17:16] LABS: PLATELET COUNT 104 K/uL (150-450)
[2024-12-02 17:29] LABS: INR 1.25; PARTIAL THROMBOPLASTIN TIME 31.5 SECONDS (22.0-34.0); PROTHROMBIN TIME 13.4 SECONDS (9.0-11.5)
[2024-12-02 17:35] LABS: ALBUMIN 2.4 gm/dL (3.4-5.0); BILIRUBIN TOTAL 1.26 mg/dL (0.3-1.2); BILIRUBIN,CONJUGATED 0.54 mg/dL (0.0-0.2); BILIRUBIN,UNCONJUGATED 0.72 mg/dL (0.0-0.6); CALCIUM 8.7 mg/dL (8.5-10.1); CREATININE SERUM 1.59 mg/dL (0.70-1.30); GFR 41.59; GLOBULINA 3.7 G/DL (2.4-3.5); POTASSIUM 3.83 mEq/L (3.5-5.1); TOTAL PROTEIN 6.1 gm/dL (6.4-8.2)
[2024-12-02 17:46] LABS: URINE APPEARANCE Clear; URINE BILIRRUBIN Negative (NEGATIVE); URINE BLOOD Negative; URINE COLOR Yellow; URINE GLUCOSE Negative (NEGATIVE); URINE KETONE Negative (NEGATIVE); URINE LEUKOCYTE Negative; URINE NITRATE Negative; URINE PROTEIN Negative (NEGATIVE); URINE UROBILINOGEN 0.2 E.U./dl
[2024-12-02 17:50] LABS: URINE BACTERIA 17.1 uL (0.0-1933); URINE WBC 6.3 uL (0.0-23.2)
[2024-12-02 18:15] LABS: URINE CAST 0.44 uL (0.0-1.40); URINE EPITHELIAL CELLS 1.2 uL (0.0-38.8); URINE RBC 1.6 uL (0.0-20.8)
[2024-12-02 18:18] LABS: URINE YEAST NEGATIVE /hpf
[2024-12-02] MEDS ORDERED: CEFTRIAXONE SODIUM 2,000 MG in 0.9 % SODIUM CHLORIDE 100 ML IV SCH (20:23)
[2024-12-02] MEDS ORDERED: OSELTAMIVIR PHOSPHATE 75 MG CAPSULE PO SCH (20:24)
[2024-12-02] MEDS ORDERED: PANTOPRAZOLE SODIUM 40 MG in 0.9 % SODIUM CHLORIDE 8 ML IV PUSH SCH (20:24)
[2024-12-02] MEDS ORDERED: AZITHROMYCIN 500 MG VIAL IV SCH (20:24)
[2024-12-02 20:25] LABS: ABG PH 7.428 (7.35-7.45); ABG PO2 108.2 mmHg (80-100); BICARBONATE 26.5 mmol/l (23-25); SaO2 98.3 %; Tco2 27.8 mmol/l
[2024-12-02] MEDS ORDERED: 0.9 % SODIUM CHLORIDE 1,000 ML IV SCH (20:30)
[2024-12-02] MEDS ORDERED: ACETAMINOPHEN 325 MG TABLET PO PRN (20:30)
[2024-12-02] MEDS ORDERED: GUAIFENESIN 200 MG/10 ML BLIST.PACK PO SCH (20:42)
[2024-12-02] MEDS ORDERED: DEXTROSE 50 % IN WATER 0.5 G/ML DISP.SYRIN IV PRN (20:45)
[2024-12-02] MEDS ORDERED: INSULIN LISPRO 1,000 UNIT/10 ML UNITS SUBCUTANEO PRN (20:45)
[2024-12-02] MEDS ORDERED: hydrALAZINE HCL 20 MG VIAL IV PRN (20:45)
[2024-12-02] MEDS ORDERED: METHYLPREDNISOLONE SOD SUCC 40 MG VIAL IV SCH (21:00)
[2024-12-02 21:58] LABS: allen test SATISFACTORY; o2 32 %; puncture site RADIAL RIGHT
[2024-12-02] MEDS ORDERED: METHYLPREDNISOLONE SOD SUCC 40 MG VIAL ONE (22:16)
[2024-12-02] MEDS ORDERED: ACETAMINOPHEN 500 MG GEL..CAP PO ONE (22:16)
[2024-12-02] MEDS ORDERED: OSELTAMIVIR PHOSPHATE 75 MG CAPSULE PO ONE (22:16)
[2024-12-02] MEDS ORDERED: CEFTRIAXONE SODIUM 2,000 MG VIAL ONE (22:16)
[2024-12-02] MEDS ORDERED: AZITHROMYCIN 500 MG VIAL IV ONE (22:16)
[2024-12-02] MEDS ORDERED: GUAIFENESIN 200 MG/10 ML BLIST.PACK PO ONE (22:17)
[2024-12-02 22:43] VITALS: BP 123/64; O2SAT 98
[2024-12-02 23:29] LABS: BILIRUBIN TOTAL 1.69 mg/dL (0.3-1.2); BILIRUBIN,CONJUGATED 0.64 mg/dL (0.0-0.2); BILIRUBIN,UNCONJUGATED 1.05 mg/dL (0.0-0.6); CHOL HDL RATIO 1.8 (0-5.0)
[2024-12-03 00:37] VITALS: BP 104/54; O2SAT 98
[2024-12-03 08:00] VITALS: BP 103/61
[2024-12-03 08:20] LABS: HEMATOCRIT 30.1 % (39.0-48.0); HEMOGLOBIN 10.1 g/dL (13-16.00); MEAN CELL VOLUME 98.1 fL (80.0-100.00); MEAN CORPUSCULAR HEMOGLOBIN 32.9 pg (27.00-32.0); MEAN CORPUSCULAR HGB CONC 33.5 g/dl (32.0-36.0); RED BLOOD COUNT 3.07 M/uL (4.00-6.00); RED CELL DISTRIBUTION WIDTH 16.5 % (11.5-14.5)
[2024-12-03 08:22] LABS: PLATELET COUNT 91 K/uL (150-450)
[2024-12-03] MEDS ORDERED: AZITHROMYCIN 500 MG VIAL IV ONE (08:28)
[2024-12-03] MEDS ORDERED: OSELTAMIVIR PHOSPHATE 30MG CAP PO SCH (11:14)
[2024-12-03] MEDS ORDERED: ACETAMINOPHEN 500 MG GEL..CAP PO PRN (11:15)
[2024-12-03 17:04] VITALS: BP 140/60
[2024-12-03 21:39] VITALS: BP 126/60
[2024-12-04 00:28] VITALS: BP 132/65; O2SAT 97
[2024-12-04] MEDS ORDERED: METHYLPREDNISOLONE SOD SUCC 40 MG VIAL IV SCH (01:00)
[2024-12-04 08:20] VITALS: BP 133/64
[2024-12-04] MEDS ORDERED: AZITHROMYCIN 500 MG VIAL IV ONE (08:52)
[2024-12-04 18:17] VITALS: BP 148/67
[2024-12-04] MEDS ORDERED: 0.9 % SODIUM CHLORIDE 1,000 ML IV SCH (20:15)
[2024-12-05 02:00] VITALS: BP 155/64; O2SAT 97
[2024-12-05] MEDS ORDERED: ENOXAPARIN SODIUM 30 MG/0.3 ML SYRINGE SUBCUTANEO SCH (09:00)
[2024-12-05] MEDS ORDERED: levoFLOXacin IN DEXTROSE 5 % 5 MG/ML PIGGYBAG IV SCH (09:00)
[2024-12-05 09:10] VITALS: BP 150/71; O2SAT 94
[2024-12-05 09:54] LABS: CALCIUM 8.6 mg/dL (8.5-10.1); CREATININE SERUM 1.34 mg/dL (0.70-1.30); GFR 50.66; POTASSIUM 4.91 mEq/L (3.5-5.1)
[2024-12-05 10:30] LABS: ABG PH 7.419 (7.35-7.45); ABG PO2 81.9 mmHg (80-100); ABG pCO2 36.5 mmHg (35-45); BASE EXCESS -0.9 mmol/l; BICARBONATE 23.1 mmol/l (23-25); SaO2 96.2 %; Tco2 24.2 mmol/l
[2024-12-05 11:36] LABS: o2 21 %
[2024-12-05 11:37] LABS: allen test SATISFACTORY; puncture site RADIAL LEFT
[2024-12-05 12:09] LABS: HEMATOCRIT 30.8 % (39.0-48.0); HEMOGLOBIN 10.3 g/dL (13-16.00); MEAN CELL VOLUME 96.8 fL (80.0-100.00); MEAN CORPUSCULAR HEMOGLOBIN 32.4 pg (27.00-32.0); MEAN CORPUSCULAR HGB CONC 33.4 g/dl (32.0-36.0); RED BLOOD COUNT 3.18 M/uL (4.00-6.00); RED CELL DISTRIBUTION WIDTH 15.9 % (11.5-14.5)
[2024-12-05 12:21] LABS: PLATELET COUNT 129 K/uL (150-450)
[2024-12-05 13:33] LABS: CALCIUM 8.4 mg/dL (8.5-10.1); CREATININE SERUM 1.33 mg/dL (0.70-1.30); GFR 51.1; POTASSIUM 4.21 mEq/L (3.5-5.1)
[2024-12-05 16:28] VITALS: BP 143/74; O2SAT 98
[2024-12-06 02:28] VITALS: BP 107/62; O2SAT 95
[2024-12-06 07:59] VITALS: BP 138/77
[2024-12-06] MEDS ORDERED: PANTOPRAZOLE SODIUM 40 MG TABLET.DR PO SCH (09:00)
[2024-12-06 16:38] VITALS: BP 116/71; O2SAT 98
== END 2024-12-06 17:51 | disposition home or self-care (01) | DRG 194 ==
LOC: ER 14:31 → MEDI 21:08 → MEDJ 21:08
PROVIDERS: Emergency Medicine; General Practice; ADMIT Student in an Organized Health Care Education/Training Program; ATTEND Student in an Organized Health Care Education/Training Program
PROC: 4A033R1 Measurement of Arterial Saturation, Peripheral, Percutaneous Approach (ICD-10-PCS; principal; 2024-12-02)
PROC: 8E0ZXY6 Isolation (ICD-10-PCS; 2024-12-02)
PROC: 02HV33Z Insertion of Infusion Device into Superior Vena Cava, Percutaneous Approach (ICD-10-PCS; 2024-12-02)
DX: J10.00 Influenza due to other identified influenza virus with unspecified type of pneumonia (principal); B37.89 Other sites of candidiasis; J44.1 Chronic obstructive pulmonary disease with (acute) exacerbation; R78.81 Bacteremia; R65.10 Systemic inflammatory response syndrome (SIRS) of non-infectious origin without acute organ dysfunction; N39.0 Urinary tract infection, site not specified; N17.9 Acute kidney failure, unspecified; G30.9 Alzheimer's disease, unspecified; F02.80 Dementia in other diseases classified elsewhere, unspecified severity, without behavioral disturbance, psychotic disturbance, mood disturbance, and anxiety; G47.33 Obstructive sleep apnea (adult) (pediatric); Z85.29 Personal history of malignant neoplasm of other respiratory and intrathoracic organs; K76.9 Liver disease, unspecified; J10.1 Influenza due to other identified influenza virus with other respiratory manifestations; R53.1 Weakness; R63.0 Anorexia; R42 Dizziness and giddiness; B96.5 Pseudomonas (aeruginosa) (mallei) (pseudomallei) as the cause of diseases classified elsewhere

== ENCOUNTER 2025-02-27 13:52 | Outpatient (CLI) | payer OTHER | END 2025-02-27 14:02 | disposition home or self-care (01) | LOC: SONOGRAMA 13:52 | PROVIDERS: ATTEND Internal Medicine Endocrinology, Diabetes & Metabolism | DX: I10 Essential (primary) hypertension (principal); M06.9 Rheumatoid arthritis, unspecified; E78.2 Mixed hyperlipidemia; D50.9 Iron deficiency anemia, unspecified; G44.52 New daily persistent headache (NDPH); G46.3 Brain stem stroke syndrome; R94.5 Abnormal results of liver function studies; E11.8 Type 2 diabetes mellitus with unspecified complications; K74.60 Unspecified cirrhosis of liver; R04.2 Hemoptysis ==

== ENCOUNTER 2025-05-15 12:15 | Outpatient (CLI) | payer OTHER | END 2025-05-15 12:17 | disposition home or self-care (01) | LOC: SONOGRAMA 12:15 | PROVIDERS: ATTEND Urology | DX: N32.81 Overactive bladder (principal); R33.9 Retention of urine, unspecified; N40.1 Benign prostatic hyperplasia with lower urinary tract symptoms ==

== ENCOUNTER → 2025-07-13 | Outpatient (CLI) | payer OTHER | END | disposition home or self-care (01) | LOC: RAD 11:25 | PROVIDERS: ATTEND Internal Medicine Rheumatology | DX: M94.0 Chondrocostal junction syndrome [Tietze] (principal); R06.9 Unspecified abnormalities of breathing; I10 Essential (primary) hypertension ==